=== PATIENT | female | born 1955 | race Two or more races ===

== ENCOUNTER 2025-07-09 13:47 | Emergency (ER) | payer OTHER ==
[~2025-07-09] VITALS: Ht 162.6 cm; Wt 84.8 kg
[2025-07-09] MEDS ORDERED: KAPSPARGO SPRIN25 MG PO (15:22)
[2025-07-09] MEDS ORDERED: METHYLPREDNISOLONE SOD SUCC 125 MG VIAL IV STA (15:37)
[2025-07-09] MEDS ORDERED: IPRATROPIUM BROMIDE 0.5 MG/2.5 ML AMPUL.NEB IH SCH (15:45)
[2025-07-09] MEDS ORDERED: 0.9 % SODIUM CHLORIDE 1,000 ML IV SCH (15:45)
[2025-07-09] MEDS ORDERED: LEVALBUTEROL HCL 0.63 MG/3 ML SOLUTION IH SCH (15:45)
[2025-07-09 16:35] LABS: BASO % 0.9 % (0.1-1.2); EOS # 0.05 (0.04-0.54); EOS % 1.1 % (0.7-7.0); LYMPH # 1.22 (1.18-3.74); LYMPH % 26.1 % (19.3-53.1); MEAN PLATELET VOLUME 10.40 fl (9.4-12.4); MONO # 0.60 (0.24-0.82); NEUT # 2.75 (1.56-6.13); NEUT % 58.9 % (34.0-71.1); RED CELL DISTRIBUTION WIDTH 14.6 % (11.6-14.4)
[2025-07-09 16:37] LABS: MONO % 12.8 % (4.7-12.5)
[2025-07-09 16:39] LABS: ERYTHROCYTE SEDIMENTATION RATE 35 mm/hr (0-30)
[2025-07-09 16:58] LABS: INR 1.07
[2025-07-09 17:04] LABS: URINE APPEARANCE Clear; URINE BILIRRUBIN Negative (NEGATIVE); URINE BLOOD Small; URINE COLOR Yellow; URINE GLUCOSE Negative (NEGATIVE); URINE LEUKOCYTE Negative; URINE NITRATE Positive; URINE PROTEIN Negative (NEGATIVE); URINE UROBILINOGEN 0.2 E.U./dl
[2025-07-09 17:09] LABS: URINE EPITHELIAL CELLS 6.1 uL (0.0-38.8); URINE RBC 5.2 uL (0.0-20.8); URINE WBC 4.7 uL (0.0-23.2)
[2025-07-09 17:19] LABS: COVID-19 AG NEGATIVE (NEGATIVE)
[2025-07-09 17:33] LABS: URINE BACTERIA > 9821.5 uL (0.0-1933); URINE CAST 0.00 uL (0.0-1.40); URINE KETONE 40 (NEGATIVE)
[2025-07-09] MEDS ORDERED: BUDESONIDE0.5 MG/2 M IH (19:21)
[2025-07-09] MEDS ORDERED: ALBUTEROL2.5 MG/3 M IH (19:21)
[2025-07-09] MEDS ORDERED: MEDROLPACK PO (19:21)
== END 2025-07-09 19:46 | disposition home or self-care (01) ==
LOC: ER 13:48
PROVIDERS: Physician Assistant Medical
DX: J45.901 Unspecified asthma with (acute) exacerbation (principal); I10 Essential (primary) hypertension